=== PATIENT | male | born 1975 | race Caucasian/White ===

== ENCOUNTER 2016-09-17 11:40 | Emergency (ER) | payer MEDICAID ==
[2016-09-17] MEDS ORDERED: ONDANSETRON 4 MG/2 ML VIAL IVP ONE (12:14)
[2016-09-17] MEDS ORDERED: NS 1,000 ML IV ONE (12:14)
[2016-09-17 12:31] LABS: % IMMATURE GRANULYOCYTES 0.5 % (0.0-1.1); ADD DIFF? NO; ADD MORPH? NO; ADD SCAN? NO; ATYPICAL LYMPHOCYTE FLAG 0 (0-99); FRAGMENT RBC FLAG 0 (0-99); HEMATOCRIT 55.3 % (40.0-51.0); HEMOGLOBIN 19.5 g/dL (13.7-17.5); LEFT SHIFT FLG 0 (0-99); LIPEMIA HEMOLYSIS FLAG 90 (0-99); MEAN CELL HEMOGLOBIN CONCENTR. 35.3 g/dL (32.4-36.7); MEAN CELL VOLUME 93.6 fL (81.5-99.8); MEAN PLATELET VOLUME 9.1 fL (8.7-11.7); PLATELET CLUMPS FLAG 0 (0-99); PLATELET COUNT 170 10^3/uL (150-400); RED BLOOD CELL COUNT 5.91 10^6/uL (4.40-6.38)
[2016-09-17 12:52] LABS: POTASSIUM 4.4 mEq/L (3.5-5.2)
[2016-09-17 12:53] LABS: ALANINE AMINOTRANSFERASE 42 IU/L (21-72); ALBUMIN 4.8 g/dL (3.5-5.0); ALKALINE PHOSPHATASE 89 IU/L (38-126); ANION GAP 13 mEq/L (8-16); ASPARTATE AMINOTRANSFERASE 24 IU/L (17-59); BILIRUBIN,TOTAL 1.7 mg/dL (0.1-1.4); BILIRUBIN-CONJUGATED 0.3 mg/dL (0.0-0.5); BILIRUBIN-UNCONJUGATED 1.4 mg/dL (0.0-1.1); CALCIUM 9.7 mg/dL (8.5-10.4); CARBON DIOXIDE 26 mEq/l (22-31); CHLORIDE 103 mEq/L (97-110); CREATININE 0.7 mg/dL (0.7-1.3); GLOMERULAR FILTRATION RATE > 60; GLUCOSE 102 mg/dL (70-100); SODIUM 142 mEq/L (134-144); TOTAL PROTEIN 7.9 g/dL (6.3-8.2)
[2016-09-17] MEDS ORDERED: IOPAMIDOL (ISOVUE-300) 100 ML BTL IV ONE (13:14)
[2016-09-17 13:45] LABS: COLOR YELLOW; LEUKOCYTE ESTERASE,URINE NEGATIVE (NEGATIVE); NITRITE,URINE NEGATIVE (NEGATIVE)
[2016-09-17 13:52] LABS: MUCUS 4+ /lpf (NONE-1+)
[2016-09-17 13:53] LABS: BACTERIA NONE SEEN /hpf (NONE SEEN)
--- NOTE | 2016-09-17 14:04 | EDPHY ---
H & P Stated Complaint: abd pain Time Seen by Provider: 09/17/16 11:43 HPI/ROS: Chief complaint: Abdominal pain with nausea and vomiting History of present illness: This is a 40-year-old male who presents to the emergency department for evaluation of abdominal pain with associated nausea and vomiting. Patient reports the onset of symptoms this morning. Multiple episodes of vomiting described as nonbloody. He denies other associated signs or symptoms including no fevers, no diarrhea or constipation, no urinary symptoms. He believes it is secondary to bad soup he ate last night. Review of systems: A 10 point review of systems was obtained and other than described above was negative - Personal History Current Tetanus Diphtheria and Acellular Pertussis (TDAP): Yes Tetanus Vaccine Date: <10yrs - Medical/Surgical History Hx Asthma: No Hx Chronic Respiratory Disease: No Hx Diabetes: No Hx Cardiac Disease: No Hx Renal Disease: No Hx Cirrhosis: No Hx Alcoholism: No Hx HIV/AIDS: No Hx Splenectomy or Spleen Trauma: No Other PMH: Psych, marijuana use, PTSD, anxiety , depression. - Social History Smoking Status: Heavy smoker - Physical Exam Exam: General Appearance: Alert, nontoxic. Eyes: Pupils equal and round no pallor or injection. ENT, Mouth: Mucous membranes moist. Respiratory: There are no retractions, lungs are clear to auscultation. Cardiovascular: Regular rate and rhythm. Gastrointestinal: Bowel sounds normal. Abdomen is soft, nondistended. There is mild diffuse tenderness. No peritoneal signs. Neurological: Alert and oriented x4. Strength and sensation intact and symmetrical. Skin: Warm and dry, no rashes. Musculoskeletal: Neck is supple non tender. Extremities are symmetrical, full range of motion. Psychiatric: Patient is oriented X 3, there is no agitation. Constitutional: Initial Vital Signs Respiratory Rate 18 09/17/16 11:57 Blood Pressure 127/80 H 09/17/16 11:57 O2 Sat (%) 96 09/17/16 11:57 O2 Delivery Mode Room Air O2 (L/minute) 95 Allergies/Adverse Reactions: No Known Allergies Allergy (Verified 05/18/16 21:04) Home Medications: Medication Instructions Recorded ALPRAZolam [Xanax] 1 mg PO BID 10/29/15 QUEtiapine FUMARATE [SEROquel] 100 mg PO DAILY 10/29/15 buPROPion SR [Wellbutrin Sr] 150 mg PO 10/29/15 Cyclobenzaprine [Flexeril] 10 mg PO TID #15 tab 02/03/16 Hydrocodone/APAP 5/325 [[place] 1 - 2 tab PO Q4 #13 tab 02/03/16 5/325 (RX)] Albuterol [Ventolin Hfa Inhaler] 2 puffs IH QID PRN #1 mdi 03/03/16 Albuterol Sulfate [PROVENTIL HFA] 6.7 gm IH Q4-6PRN PRN #1 hfa.aer.ad 04/24/16 Fluticasone Nasal [Flonase Nasal 1 sprays NASAL DAILY #1 mdi 04/24/16 [place] (RX)] Ibuprofen 600 mg PO TID PRN #20 tablet 04/24/16 AZITHROMYCIN [Z-PACK] 500 mg PO DAILY #1 packet 05/18/16 Albuterol [Proventil Inhaler HFA 1 - 2 puffs IH Q4PRN PRN #1 mdi 05/18/16 (*)] Benzonatate [Tessalon Pearles (RX)] 200 mg PO TID PRN #20 cap 05/18/16 Medical Decision Making - Diagnostics Imaging: Imaging Impressions Abdomen CT 09/17/16 13:10 Impression: Probable mild enteritis. No evidence for appendicitis or diverticulitis. Results discussed with Dr. Cheyenne Salinas. ED Course/Re-evaluation: Patient seen under the supervision of my primary supervising physician Dr. Amna Lomeli. Patient presents to the emergency department for evaluation of abdominal pain with nausea and vomiting. He is nontoxic. Serial abdominal exams are performed in the emergency room and remain benign. Blood studies reveal a significant leukocytosis therefore CT scan is pursued and consistent with an enteritis. Patient is IV hydrated and treated with Zofran. He is feeling better. He is discharged home. Home care is discussed. Return precautions are given. Patient voiced understanding and agreement with plan. Differential Diagnosis: Included but not limited to gastritis, gastroenteritis, biliary tract disease, pancreatitis, colitis, appendicitis, bowel obstruction, urinary tract disease - Data Points Laboratory Results: Laboratory Results 09/17/16 12:21 09/17/16 12:21 09/17/16 09/17/16 09/17/16 13:14 12:21 12:21 WBC 19.34 10^3/uL H 10^3/uL (3.80-9.50) RBC 5.91 10^6/uL 10^6/uL (4.40-6.38) Hgb 19.5 g/dL H g/dL (13.7-17.5) Hct 55.3 % H % (40.0-51.0) MCV 93.6 fL fL (81.5-99.8) MCH 33.0 pg pg (27.9-34.1) MCHC 35.3 g/dL g/dL (32.4-36.7) RDW 12.0 % % (11.5-15.2) Plt Count 170 10^3/uL 10^3/uL (150-400) MPV 9.1 fL fL (8.7-11.7) Neut % (Auto) 93.2 % H % (39.3-74.2) Lymph % (Auto) 1.2 % L % (15.0-45.0) [place] % (Auto) 4.7 % % (4.5-13.0) Eos % (Auto) 0.1 % L % (0.6-7.6) Baso % (Auto) 0.3 % % (0.3-1.7) Nucleat RBC Rel Count 0.0 % % (0.0-0.2) Absolute Neuts (auto) 18.03 10^3/uL H 10^3/uL (1.70-6.50) Absolute Lymphs (auto) 0.23 10^3/uL L 10^3/uL (1.00-3.00) Absolute Monos (auto) 0.91 10^3/uL H 10^3/uL (0.30-0.80) Absolute Eos (auto) 0.01 10^3/uL L 10^3/uL (0.03-0.40) Absolute Basos (auto) 0.06 10^3/uL 10^3/uL (0.02-0.10) Absolute Nucleated RBC 0.00 10^3/uL 10^3/uL (0-0.01) Immature Gran % 0.5 % % (0.0-1.1) Immature Gran # 0.10 10^3/uL 10^3/uL (0.00-0.10) Sodium 142 mEq/L mEq/L (134-144) Potassium 4.4 mEq/L mEq/L (3.5-5.2) Chloride 103 mEq/L mEq/L (97-110) Carbon Dioxide 26 mEq/l mEq/l (22-31) Anion Gap 13 mEq/L mEq/L (8-16) BUN 22 mg/dL mg/dL (7-23) Creatinine 0.7 mg/dL mg/dL (0.7-1.3) Estimated GFR > 60 Glucose 102 mg/dL H mg/dL (70-100) Calcium 9.7 mg/dL mg/dL (8.5-10.4) Total Bilirubin 1.7 mg/dL H mg/dL (0.1-1.4) Conjugated Bilirubin 0.3 mg/dL mg/dL (0.0-0.5) Unconjugated Bilirubin 1.4 mg/dL H mg/dL (0.0-1.1) AST 24 IU/L IU/L (17-59) ALT 42 IU/L IU/L (21-72) Alkaline Phosphatase 89 IU/L IU/L (38-126) Total Protein 7.9 g/dL g/dL (6.3-8.2) Albumin 4.8 g/dL g/dL (3.5-5.0) Lipase 31.0 IU/L IU/L (23-300) Urine Color YELLOW Urine Appearance MODERATELY TURBID Urine pH 5.0 (5.0-7.5) Ur Specific [place] 1.031 H (1.002-1.030) Urine Protein 1+ H (NEGATIVE) Urine Ketones 1+ H (NEGATIVE) Urine Blood NEGATIVE (NEGATIVE) Urine Nitrate NEGATIVE (NEGATIVE) Urine Bilirubin NEGATIVE (NEGATIVE) Urine Urobilinogen NEGATIVE EU EU (0.2-1.0) Ur Leukocyte Esterase NEGATIVE (NEGATIVE) Urine RBC 1-3 /hpf /hpf (0-3) Urine WBC 1-3 /hpf /hpf (0-3) Ur Epithelial Cells TRACE /lpf /lpf (NONE-1+) Urine Bacteria NONE SEEN /hpf /hpf (NONE SEEN) Urine Mucus 4+ /lpf H /lpf (NONE-1+) Urine Sperm PRESENT /hpf /hpf (NONE SEEN) Ur Culture Indicated? NOT INDICATED (NI) Urine Glucose NEGATIVE (NEGATIVE) Medications Given: Discontinued Medications Sodium Chloride (Ns) 1,000 mls @ 0 mls/hr IV ONCE ONE PRN Reason: Wide Open Stop: 09/17/16 12:15 Last Admin: 09/17/16 12:24 Dose: 1,000 mls Ondansetron HCl (Zofran) 4 mg IVP EDNOW ONE Stop: 09/17/16 12:15 Last Admin: 09/17/16 12:24 Dose: 4 mg Departure - Departure Disposition: Home, Routine, Self-Care Clinical Impression: Abdominal pain Qualifiers: Abdominal location: generalized Qualified Code(s): R10.84 - Generalized abdominal pain Condition: Good Instructions: Acute Abdominal Pain (ED) Additional Instructions: Follow-up with a primary care doctor for recheck If symptoms worsen or new symptoms develop return to the emergency room for recheck Referrals: NONE *PRIMARY CARE P,. [Primary Care Provider] - As per Instructions [facility],. [Clinic] - As per Instructions
[2016-09-17 14:17] VITALS: BP 136/98; PULSE 105; RESP 16; TEMP 98.4; O2SAT 98
== END 2016-09-17 14:23 | disposition home or self-care (01) ==
LOC: EDUNIT#
DX: R10.84 Generalized abdominal pain (principal); F17.200 Nicotine dependence, unspecified, uncomplicated
CPT/HCPCS: 96374; J2405; Q9967